=== PATIENT | female | born 1995 | race African-American/Black ===

== ENCOUNTER 2021-01-01 00:09 | Inpatient (IN) | payer OTHER ==
[2021-01-01 00:27] VITALS: BMI 42.5
[2021-01-01] MEDS ORDERED: ACETAMINOPHEN 1000 MG/100 ML VIAL (NON FORMULARY) IVPB ONE ×2 (01:00→17:18)
[2021-01-01] MEDS ORDERED: SODIUM CHLORIDE 0.9% 500 ML INFUS.BAG IV ONE (01:00)
[2021-01-01] MEDS ORDERED: ACETAMINOPHEN INJECTION 100 ML IVPB ONE ×2 (01:14→18:05)
[2021-01-01 01:23] LABS: HEMATOCRIT 35.4 % (32.4-45.2); HEMOGLOBIN 11.9 GM/dL (10.7-15.3); MCH 27.7 pg (25.7-33.7); MCHC 33.5 g/dl (32.0-36.0); MEAN CELL VOLUME 82.6 fl (80-96); MEAN PLT VOLUME 8.3 fl (7.5-11.1); PLATELET COUNT 374 10^3/uL (134-434); RBC 4.29 M/mm3 (3.60-5.2); RDW 14.2 % (11.6-15.6); WHITE BLOOD COUNT 5.4 K/mm3 (4.0-10.0)
[2021-01-01 01:34] LABS: CALCIUM 9.4 mg/dL (8.5-10.1)
[2021-01-01 01:35] LABS: ALBUMIN 4.1 g/dl (3.4-5.0); BLOOD UREA NITROGEN 7.1 mg/dL (7-18)
[2021-01-01 01:38] LABS: CREATININE 0.9 mg/dL (0.55-1.3)
[2021-01-01 01:40] LABS: BILIRUBIN,TOTAL 0.2 mg/dL (0.2-1); TOT PROT 8.3 g/dl (6.4-8.2)
[2021-01-01] MEDS ORDERED: SODIUM CHLORIDE 1,000 ML IV SCH (03:30)
[2021-01-01] MEDS ORDERED: CEFTRIAXONE 1 GM/50 ML BAG ONE ×2 (03:49→09:12)
[2021-01-01] MEDS: CEFTRIAXONE 1 GM in DEXTROSE 5%-WATER - 50 ML IVPB SCH ×2 (04:21→09:22)
[2021-01-01] MEDS ORDERED: morphine CARPU-JECT 4 MG/1 ML DISP.SYRIN IVPUSH ONE (04:33)
[2021-01-01] MEDS ORDERED: morphine SULFATE 4 MG/ML VIAL ONE (05:01)
[2021-01-01] MEDS ORDERED: GlUCAGON HUMAN RECOMBINANT 1 MG/VIAL IVPUSH ONE (05:51)
[2021-01-01 06:08] LABS: URINE APPEARANCE CLEAR; URINE BILIRUBIN NEGATIVE (NEGATIVE); URINE COLOR YELLOW; URINE GLUCOSE (UA) NEGATIVE (NEGATIVE); URINE KETONE NEGATIVE (NEGATIVE); URINE LEUK ESTERASE NEGATIVE (NEGATIVE); URINE NITRITE NEGATIVE (NEGATIVE); URINE PROTEIN NEGATIVE (NEGATIVE); URINE UROBILINOGEN 0.2 mg/dL (0.2-1.0)
[2021-01-01 07:11] LABS: HEMATOCRIT 32.8 % (32.4-45.2); MCH 27.7 pg (25.7-33.7); MCHC 33.4 g/dl (32.0-36.0); MEAN PLT VOLUME 8.6 fl (7.5-11.1); PLATELET COUNT 314 10^3/uL (134-434); RBC 3.95 M/mm3 (3.60-5.2); RDW 13.9 % (11.6-15.6); WHITE BLOOD COUNT 5.6 K/mm3 (4.0-10.0)
[2021-01-01 07:19] LABS: INR 1.06 (0.83-1.09); PROTHROMBIN TIME (PATIENT) 12.8 SEC (9.7-13.0)
[2021-01-01 07:52] LABS: ALBUMIN 3.5 g/dl (3.4-5.0); BLOOD UREA NITROGEN 4.8 mg/dL (7-18); CALCIUM 8.5 mg/dL (8.5-10.1)
[2021-01-01 07:53] LABS: MAGNESIUM 1.9 mg/dL (1.8-2.4)
[2021-01-01 07:55] LABS: CREATININE 0.7 mg/dL (0.55-1.3); PHOSPHOROUS 2.8 mg/dL (2.5-4.9)
[2021-01-01 07:57] LABS: BILIRUBIN,TOTAL 0.2 mg/dL (0.2-1); TOT PROT 6.9 g/dl (6.4-8.2)
[2021-01-01] MEDS ORDERED: morphine SULFATE 4 MG/ML VIAL IVPUSH PRN (14:06)
[2021-01-01] MEDS ORDERED: PANTOPRAZOLE SODIUM 40 MG VIAL IVPUSH SCH (15:45)
[2021-01-01] MEDS ORDERED: PANTOPRAZOLE SODIUM 40 MG VIAL ONE (15:56)
[2021-01-01 22:45] VITALS: BP 125/78; PULSE 67; TEMP 98.4
== END 2021-01-01 23:16 | disposition home or self-care (01) | DRG 251 ==
LOC: JER 00:09 → JERBED 02:20
PROVIDERS: ADMIT Internal Medicine; ATTEND Internal Medicine
DX: R10.9 Unspecified abdominal pain (principal); E66.9 Obesity, unspecified; F12.90 Cannabis use, unspecified, uncomplicated; Z68.41 Body mass index [BMI] 40.0-44.9, adult
CPT/HCPCS: 36415; 74177-TC; 80053; 81003; 83690; 83735; 84100; 84703; 85025; 85027; 85610; 87086; 93005; 93010; 99285-25; C9803; J0131; Q9967; U0003; U0005

== ENCOUNTER 2021-04-28 07:56 | Emergency (ER) | payer OTHER ==
[2021-04-28 08:15] VITALS: BP 133/62; PULSE 83; TEMP 98.6; BMI 31.8
== END 2021-04-28 09:16 | disposition home or self-care (01) ==
LOC: JERFT 07:56
DX: K64.9 Unspecified hemorrhoids (principal)
CPT/HCPCS: 99281-25

== ENCOUNTER 2022-04-24 01:22 | Emergency (ER) | payer OTHER ==
[2022-04-24 01:33] VITALS: BP 116/74; PULSE 91; RESP 20; TEMP 98.7; BMI 25.4
[2022-04-24] MEDS ORDERED: KETOROLAC TROMETHAMINE 15 MG/ML VIAL IM ONE (05:25)
[2022-04-24] MEDS ORDERED: ACETAMINOPHEN 500 MG TABLET (FP) PO ONE (05:25)
[2022-04-24] MEDS ORDERED: KETOROLAC TROMETHAMINE 15 MG/ML VIAL ONE (05:29)
[2022-04-24] MEDS ORDERED: ACETAMINOPHEN 325 MG TABLET (FP) ONE (05:29)
== END 2022-04-24 05:35 | disposition home or self-care (01) ==
LOC: JER 01:22
PROC: 3E0233Z Introduction of Anti-inflammatory into Muscle, Percutaneous Approach (ICD-10-PCS; principal; 2022-04-24)
DX: M79.606 Pain in leg, unspecified (principal)
CPT/HCPCS: 85379; 99284-25